=== PATIENT | male | born 1970 | race Caucasian/White ===

== ENCOUNTER → 2018-06-14 | Outpatient (REF) | LOC: M SMT 14:13 | DX: Z02.71 Encounter for disability determination (principal) ==

== ENCOUNTER 2024-06-07 16:25 | Emergency (ER) | payer MEDICARE, MEDICAID ==
[~2024-06-07] VITALS: Ht 170.2 cm; Wt 61.4 kg
[2024-06-07] MEDS: HumuLIN R (REGULAR) INSULIN (NovoLIN R) **100U/ML** PER UNIT SC ONE (17:45)
[2024-06-07] MEDS: ONDANSETRON 4MG ORAL DISINTEGRATING TAB PO ONE (17:45)
[2024-06-07] MEDS: HumuLIN R (REGULAR) INSULIN (NovoLIN R) **100U/ML** PER UNIT IV ONE (18:30)
[2024-06-07 20:00] VITALS: BP 126/62; TEMP 97.6; O2SAT 96
== END 2024-06-07 20:37 | disposition home or self-care (01) ==
LOC: M ED 16:25
DX: E10.65 Type 1 diabetes mellitus with hyperglycemia (principal); Z88.1 Allergy status to other antibiotic agents; Z91.048 Other nonmedicinal substance allergy status
CPT/HCPCS: 80047; 93041; 96374; 99284; J1815